=== PATIENT | male | born 1985 | race Caucasian/White ===

== ENCOUNTER 2018-10-26 07:24 | Emergency (ER) | payer BC, OTHER ==
[~2018-10-26] VITALS: Wt 78.9 kg
[2018-10-26 07:27] VITALS: BP 165/89; PULSE 116; RESP 18
--- NOTE | 2018-10-26 07:54 | ERD ---
ER Documentation Chief Complaint Chief Complaint TOOK ECTASSY AND ALCOHOL LAST NIGHT , NOW FEELS PALPITATIONS HPI This is a 33-year-old male with no significant past medical history who is presenting with palpitations. He was out drinking alcohol at a bar last night when he was offered a pill that he thought was ecstasy by a bar patron. He decided to take it because it was free. The patient reports feeling very energized after taking this. However, he has not been able to sleep since taking it last night. He also reports developing palpitations while on the med icine. He is starting to feel better now, but he wanted to make sure everything was okay. He denies lightheadedness or dizziness. He denies nausea or vomiting. He denies shortness of breath. He denies chest pain. He denies diaphoresis. The patient reports taking ecstasy in the past, and he reports feeling differently last night then when he took it previously. The patient denies feeling sick recently. The patient denies fever or chills. The patient has had no headache or vision changes. The patient does not endorse neck or back pain. The patient denies abdominal pain. The patient denies changes to bowel movements or urination. The patient has had no focal deficits. The patient has had no weakness or numbness or tingling to the face or extremities. ROS All systems reviewed and are negative except as per history of present illness. PMhx/Soc Medical and Surgical Hx: pt denies Medical Hx, pt denies Surgical Hx History of Surgery: No Hx Neurological Disorder: No Hx Respiratory Disorders: No Hx Cardiac Disorders: No Hx Psychiatric Problems: No Hx Miscellaneous Medical Probl: No Hx Alcohol Use: Yes Hx Substance Use: Yes Hx Tobacco Use: No FmHx Family History: No diabetes Physical Exam Vitals Vital Signs Date Temp Pulse Resp B/P (MAP) Pulse Ox O2 O2 Flow FiO2 Time Delivery Rate 10/26/18 98.7 116 18 165/89 99 07:27 (114) Physical Exam Const: No acute distress Head: Atraumatic Eyes: Normal Conjunctiva ENT: Normal External Ears, Nose and Mouth. Neck: Full range of motion. No meningismus. Resp: Clear to auscultation bilaterally Cardio: Regular rhythm, mild tachycardia, no murmurs Abd: Soft, non tender, non distended. Normal bowel sounds Skin: No petechiae or rashes Back: No midline or flank tenderness Ext: No cyanosis, or edema Neur: Awake and alert Psych: Anxious Results 24 hrs Current Medications Medications Dose Sig/Gordo Start Time Status Last (Trade) Ordered Route PRN Stop Time Admin Dose Reason Admin Lorazepam 0.5 mg ONCE ONCE 10/26/18 (Ativan) PO 08:00 10/26/18 08:01 Procedures/MDM MDM The patient's presentation warrants further investigation. Previous medical records, if available, were reviewed. EKG EKG read by me: Rate/Rhythm: Sinus tachycardia at 111 bpm Intervals: Normal [place]: Normal Impression: No evidence of acute ischemia. Sinus tachycardia TREATMENT/DISPOSITION The patient presents with palpitations, very likely related to the drug that he took last night. The patient may have taken ecstasy, but I have high suspicion that it was laced with an additional sympathomimetic substance. The patient's symptoms are likely to be self-limited. That said, the patient is very anxious appearing in the room. I did offer him a small dose of Ativan to help calm his nerves. I do not feel that he requires a prescription. The patient's lungs are clear. He does not endorse any chest pain or trouble br eathing. I do not suspect pneumonia or pneumothorax or pleural effusions or pulmonary edema. He does not have signs or symptoms concerning for thoracic aortic aneurysm or dissection. The patient does not have a history of heart failure and I have low suspicion for this. The patient does not have a diagnosis of COPD and is not wheezing today. The patient is not tachypneic or hypoxic. The patient is breathing comfortably and without pleuritic pain. The patient is not on hormonal therapy. The patient has no history of clotting or bleeding disorders. The patient has no calf tenderness. The patient has had no hemoptysis. I have decreased suspicion for PE. The patient does have mild tachycardia, but the EKG otherwise is unremarkable. I have very low suspicion for an emergent cardiopulmonary process. I have very low suspicion for acute coronary syndrome. DISCHARGE Upon reevaluation of the patient, symptoms have improved. No emergent diagnoses were identified. At this time, I feel that the patient stable for discharge. The patient was instructed to follow-up with a primary care physician in 1-3 days. The patient will be given strict precautions with which to return to the emergency department. Prescriptions: None The patient's blood pressure was elevated at greater than 120/80 while in the emergency department. The patient was otherwise stable with no evidence of hypertensive urgency or emergency. The patient does not require admission for blood pressure control. I have discussed with the patient the risks of hypertension. I have instructed the patient to return to the ER for any new or worsening symptoms including chest pain, shortness of breath, headache, blurred vision, confusion, nausea, vomiting or LOC. I have advised the patient to follow up with the primary care physician for outpatient monitoring and treatment for hypertension in 1-3 days. Disclaimer: Inadvertent spelling and grammatical errors are likely due to EHR/dictation software use and do not reflect on the overall quality of patient care. Note that the electronic time recorded on this note does not necessarily reflect the actual time of the patient encounter. Departure Diagnosis: Primary Impression: Palpitations Additional Impressions: Anxiousness Substance abuse Condition: Stable Patient Instructions: Palpitations, Substance abuse Additional Instructions: Thank you for for coming to [facility] for your care today. Please ask your nurse or provider if you have questions about your care today and do not leave until all your questions have been answered. Please use any medications given as directed and follow-up with your doctor (or the doctor you were referred to) in the next 1-3 days. If you do not have a primary care doctor you may follow up at the [facility] [place] [facility] (listed below). You may also use motrin and tylenol as needed for fever and/or pain unless i nstructed otherwise by your provider or nurse. Indications for more urgent follow-up have been discussed, but you may return to the Emergency Department at ANY time for any worrisome or worsening symptoms. If you have abdominal pain, please know that no test or exam you received is perfect and you should follow up within 8 hours for continued pain. If you had any imaging studies today, such as an X-Ray or CT Scan, these studies will be reviewed later by a radiologist. You will be called if there are impor tant findings that were not identified today, so make sure the contact information you provided at registration is correct. If you received any narcotic pain control medicine today, such as Vicodin, Morphine or Dilaudid, your coordination and judgment may be affected for a number of hours. Please do not drive or operate heavy machinery, and you may want someone to assist you at home. If you were given a prescription for narcotic medication, be aware that it is very addictive- use sparingly and only if necessary. PLEASE SEEK FURTHER EVALUATION AND MANAGEMENT AT YOUR DOCTORS OFFICE WITHIN THE NEXT 1-3 DAYS. IT IS YOUR RESPONSIBILITY TO MAKE AN APPOINTMENT FOR FOLOW-UP CARE. IF YOU HAVE A PRIMARY DOCTOR, PLEASE CALL THEIR OFFICE TO SCHEDULE AN APPOINTMENT FOR FOLLOW UP. IF YOU DO NOT HAVE A PRIMARY DOCTOR YOU CAN CALL OUR PHYSICIAN REFERRAL HOTLINE AT IF YOU CAN NOT AFFORD TO SEE A PHYSICIAN YOU CAN CHOSE FROM THE FOLLOWING [facility] CLINICS: [facility] [address] [facility] [facility] [address] [facility] [facility] [address] [facility] [facility] [address] [facility]. [facility] [address] [facility]. [facility]. [address] LAURYN SOTO MD October 26, 2018 07:54
[2018-10-26] MEDS ORDERED: LORAZEPAM 0.5 MG TAB PO ONE (08:00)
== END 2018-10-26 10:06 | disposition home or self-care (01) ==
LOC: E/R 07:24
DX: R00.2 Palpitations (principal); F41.9 Anxiety disorder, unspecified; F10.10 Alcohol abuse, uncomplicated
CPT/HCPCS: 93005